=== PATIENT | female | born 1980 | race Caucasian/White ===

== ENCOUNTER 2016-10-24 18:08 | Observation (INO) | payer MEDICAID ==
[2016-10-24] MEDS ORDERED: Sodium Chloride 0.9% 1,000 ML IV ONE (18:37)
[2016-10-24] MEDS ORDERED: Ondansetron 4 MG/2 ML SDV IV ONE (18:37)
[2016-10-24 19:14] LABS: CHLORIDE,CL 106 mmol/L (101-111); SODIUM,NA 137 mmol/L (135-145)
[2016-10-24] MEDS ORDERED: Iopamidol 755 Mg/ML 100 ML Bottle IVPUSH ONE (20:00)
[2016-10-24] MEDS ORDERED: Famotidine 20 MG/2 ML SDV IV PRN (21:29)
[2016-10-24] MEDS ORDERED: Acetaminophen 325 MG Tab PO PRN (21:29)
[2016-10-24] MEDS ORDERED: Metoclopramide 10 MG/2 ML SDV IV PRN (21:29)
[2016-10-24] MEDS ORDERED: Docusate Sodium 100 MG Cap PO PRN (21:29)
[2016-10-24] MEDS: Acetaminophen/oxyCODONE 325-5 MG Tab PO PRN (21:45)
[2016-10-24] MEDS: Lactated Ringers 1,000 ML IV SCH (21:49)
[2016-10-25] MEDS: Acetaminophen/oxyCODONE 325-5 MG Tab PO PRN ×2 (02:26→09:31)
[2016-10-25] MEDS: Lactated Ringers 1,000 ML IV SCH (06:07)
[2016-10-25 06:57] LABS: CHLORIDE,CL 107 mmol/L (101-111); SODIUM,NA 138 mmol/L (135-145)
[2016-10-25 08:35] VITALS: BP 103/62
--- NOTE | 2016-10-25 09:25 | PN ---
DATE: 10/24/2016 SUBJECTIVE: The patient has been still having her upper abdominal pain and some nausea associated with it, worse with palpation now and taking a deep breath. Investigations including chest x-ray and EKG were not concerning. CT to rule out PE was done with no evidence of cardiopulmonary disease; small hiatal hernia was noted, otherwise. ASSESSMENT: 1. Intrauterine 27 and 2/7 weeks, confirmed with 19 and 2/7 week ultrasound with left upper quadrant pain radiating into the back. 2. History of two previous C-sections. 3. Impaired glucose tolerance. 4. Advanced maternal age in a G6, P3-0-2-3. PLAN: As the patient's pain continues, we will admit her and follow clinically and closely. I have ordered some Percocet for her for pain, IV fluids, and other medications as needed. Please see orders for further details. She will be admitted for observation at this time. As ultrasound is not available, we will order ultrasound in the morning for looking at baby placenta as well as complete upper abdominal ultrasound series including kidneys, liver, spleen, gallbladder, and pancreas. Please see orders for the details. For her H and P, please see other notes for further details. [facility] /[id number]
--- NOTE | 2016-10-25 09:52 | OBOUT ---
DATE: 10/24/2016 DATE AND TIME OF NST: 10/24/2016 at 1820 hours to 1840 hours. REASON FOR NST: 1. Intrauterine at 29-2/7 weeks confirmed with 19-2/7 weeks' ultrasound. 2. Left upper quadrant pain and back pain. 3. History of 2 previous C-sections. 4. Impaired glucose tolerance. 5. Advanced maternal age. 6. G6, P3-0-2-3. NST INTERPRETATION: During this time period, heart tone baseline is approximately 155 and there are at least two 15 x 15 beats per minute accelerations, making the strip reactive. It is also noted to be reassuring. Tocometer reveals no evidence of contractions, none felt by the patient. ASSESSMENT: 1. Nonstress test - reactive and reassuring. 2. Tocometer without contractions. PLAN: Please see other OB note for further details. [facility] /[id number]
--- NOTE | 2016-10-25 10:01 | OBOUT ---
DATE: 10/24/2016 SUBJECTIVE: The patient is still having pain, was requesting something for pain. Was going to hold off after further discussion. OBJECTIVE: Vital Signs: Her heart rate is in the 108 to 109 range, O2 sats have been 98% to 99% on room air. Appearance: Lying in the gurney, sitting upright. IMAGING DATA: Chest x-ray, portable, was done and reviewed by my eyes does show interference of reading due to pendulous breasts, but no obvious acute abnormalities are noted by my evaluation. No obvious cardiomegaly. No obvious pleural effusion that I can see. EKG revealed sinus tachycardia with a rate of 11, intervals is intact, axis between 0 and 60. No obvious evidence of hypertrophy, ST changes, or significant Q-waves. ASSESSMENT AND PLAN: 1. Intrauterine at 29 and 2/7 weeks, confirmed 19 and 2/7-week ultrasound with left upper quadrant pain that radiates into the back and chest region. 2. Pleurisy. PLAN: Based on these symptoms, I did discuss the case with Dr. Adrian Sal, HEALTH PROFESSOR, in [place] and shared decision was made to proceed with CT scan of the lungs to rule out a pulmonary embolus. I did discuss this with the patient as well as risks associated with radiation that she can receive up to 5 rads safely usually during and CT scan of the abdomen and pelvis usually gives 2.2 rads, therefore, we will proceed with CT scan of the chest to rule out PE and follow clinically and closely. She is to notify us if symptoms worsen, change in any way, and did discuss with patient following closely. I did also discuss with her that baby appears reassuring on the strip. No evidence of contractions. There is no uterine pain. Therefore, I feel overall safe in terms of baby being safe in regard to current symptomatology and that is most likely not related something in utero or to the uterus or baby. The patient understands and agrees with this treatment plan. We will await evaluations as noted above. [facility] /[id number]
--- NOTE | 2016-10-25 10:07 | OBOUT ---
DATE: 10/25/2016 DATE AND TIME OF NST: 10/25/2016 at 0705 hours to 0725 hours. REASON FOR NST: 1. Intrauterine at 29-2/7 weeks confirmed with 19-2/7 weeks' ultrasound. 2. Upper abdominal pain/back pain. 3. History of 2 previous C-sections. 4. Impaired glucose tolerance. 5. Advanced maternal age. 6. 6, para 3-0-2-3. NST INTERPRETATION: During this time period, heart tone baseline is approximately 125 and there are at least two 15 x 15 beats per minute accelerations, making the strip reactive. It is also noted to be reassuring. Tocometer reveals no evidence of contractions. ASSESSMENT: 1. Nonstress test - reactive and reassuring. 2. Tocometer without contractions. PLAN: We will continue to follow clinically and closely. Please see other dictations for further details. The patient understands and agrees with the above treatment plan. [facility] /[id number]
--- NOTE | 2016-10-25 10:37 | PN ---
DATE: 10/25/2016 SUBJECTIVE: The patient slept through the night. Her pain has improved and is now described as just more of an ache on the upper abdominal area from epigastric area to right and left upper quadrant regions. Pleurisy has essentially dissipated. She is able to take a deep breath without any symptoms at this point in time. Nurses note no concerns. She did tolerate a sandwich last night. OBJECTIVE: Vital Signs: Temperature 98.1, heart rate 94, blood pressure 109/61, and respiratory rate 16. Appearance: Female who appears her stated age, lying in bed. HEENT: Head is atraumatic. EOMs intact. Mucous membranes moist. Neck: No obvious masses or lesions. Lungs: Clear to auscultation bilaterally. No increased work of breathing. No pleurisy noted. Heart: S1 and S2, regular rate and rhythm. Abdomen: Minimal tenderness with deep palpation in the upper quadrants bilaterally. No rebound, rigidity, or guarding. The pain has improved from previous evaluations. Gravid belly noted, otherwise with monitors applied. Extremities: No peripheral edema. No calf pain. INVESTIGATIONS: NST is found to be reactive and reassuring. Tocometer reveals no evidence of contractions. CMP, amylase, and troponin I are remarkable for BUN low at 6, creatinine low at 0.4, calcium low at 8, 5.9 protein, and 2.8 albumin. Urinalysis repeated this morning revealed 15 ketones, 2 urobilinogen, many mucus with no proteinuria. Troponin I was less than 0.02. Pending is her ultrasounds of her upper abdominal region. ASSESSMENT: 1. Intrauterine at 29-2/7 weeks confirmed with 19-2/7 weeks' ultrasound, admitted with left upper quadrant pain and pleurisy, now the pain seems to be more diffuse in the upper abdominal area. 2. Small hiatal hernia. 3. History of 2 previous sections. 4. Impaired glucose tolerance. 5. Advanced maternal age. 6. 6, para 3-0-2-3. PLAN: We will do the ultrasounds. If there are no concerns, most likely we will send the patient home as her pain has improved and follow clinically and closely with a followup next week. If there are concerns with ultrasounds, will need further evaluation and management potentially, and this was discussed with the patient. She understands and agrees with the treatment plan. [facility] /[id number]
--- NOTE | 2016-10-28 09:00 | HP ---
PATIENT IDENTIFICATION: Bianca Montelongo is a 36-year-old, G6, P3-0-2-3, intrauterine , 29 and 2/7 weeks, confirmed with 19 and 2/7 week ultrasound that presents with left upper quadrant pain and back pain. HISTORY OF PRESENT ILLNESS: The patient states pain woke her from sleep at 3:00 a.m., has been consistent ever since then, located in the left upper quadrant region, worse with deep palpation. Seems to radiate into the back and back portion of her shoulders. She rates the pain as 5-6/10, is made worse with taking a deep breath or walking around and she is afraid to take a deep breath because the pain is worse when she does this. She denies any spotting, bleeding, or leaking. She denies any contractions. To put this in context, she has a posterior placenta per her ultrasound report. Records were called for and reviewed as below and supplemented by the patient's history. OB HISTORY: 1. 11/06/2015, delivery at 38 and 3/7 weeks, repeat low transverse , weighing 3572 g. 2. 10/02/2000, 39 and 4/7 weeks, delivered male, primary low transverse C- section with vacuum-assisted delivery with history of breech and then vertex with failed induction, yielding a male weighing 3884 g. 3. 2009, 6 weeks, had spontaneous AB. 4. 2005, 41 weeks, delivered a spontaneous vaginal delivery of female weighing 3799 g. 5. 1996, 9 weeks, had D and C. ANTEPARTUM LABS: ABO blood type O positive, negative antibody. Rubella immune. Syphilis antibodies were nonreactive. Negative hepatitis B surface antigen, hep C, HIV, GC, chlamydia. Wet prep within normal limits. One-hour GTT was elevated at 153, 3-hour GTT was negative for gestational diabetes. ALLERGIES: None. MEDICATIONS: vitamins. PAST MEDICAL/PAST SURGICAL HISTORY: Remarkable for laparoscopic surgery for an ovarian cyst rupture and her 2 previous C-sections. She also had a breast reduction in 2013. Also, has past medical history of thyroid disease. Was told she had a leaky heart valve, saw Cardiology, and no concerns noted per patient. She has a history of depression and hypoactive sexual desire. 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 Boyfriend, Markie Arrington, father of baby, is involved. She has a cat in the household. FAMILY HISTORY: Brother was born deaf. Maternal grandmother with pancreatic and breast cancer with paternal grandmother with lung and breast cancer. Diabetes in mother, maternal aunt, maternal uncle and maternal grandfather. Heart disease in father, maternal grandfather, paternal grandfather. High blood pressure in father. No mental retardation or cystic fibrosis. No history of defects or Down syndrome. Ovarian cancer in mother. Thyroid disease in paternal grandmother. Negative family history of anesthesia problems or bleeding problems. REVIEW OF SYSTEMS: The patient denies any fever, chills, sweats, runny nose, cough, nasal congestion, or shortness of breath other than when she is afraid to take a deep breath. She denies any problems with bowel or bladder habit problems. She does note some minimal nausea associated with the above symptoms. No vomiting. No blood in the stool or dark tarry stools. No problems with urinating. No swelling or calf pain. No frontal chest pain. Otherwise, review of systems fully reviewed and felt to be noncontributory. OBJECTIVE: Vital Signs: Blood pressure 115/56, heart rate 114, temperature 99.4. Appearance: Female appears her stated age, acting appropriate for age, nontoxic in appearance. Afraid to take a deep breath with exam due to pain and discomfort. HEENT: Head is atraumatic. EOMs intact. PERRLA. No scleral icterus. No obvious otorrhea or rhinorrhea. Mucous members moist. Neck: No obvious tenderness. Lungs: Clear to auscultation bilaterally. No increased work of breathing. Pain with deep breath noted and radiating into left back, starting in the left upper quadrant region by the patient's report. Heart: S1-S2, regular rate and rhythm. Abdomen: Gravid. Jeffery's indeterminate. Tender in the left upper quadrant, which reproduces the pain that she has been experiencing with deep palpation. No other organomegaly, pulsatile masses, or obvious hernias. No rebound, rigidity, or guarding. : Deferred. Wet prep obtained per nurse. Extremities: No peripheral edema. Deep tendon reflexes 2/4 bilaterally and symmetric in the lower extremities. Psychiatric: Mood and affect are congruent. Judgment and insight are intact. Skin: Without cyanosis, clubbing, or jaundice. heart tones in the 150s range, felt to be reactive and reassuring, tocometer reveals no evidence of contractions. LABORATORY DATA: White cell count 8.5, hemoglobin 10.7, platelets 194. CMP remarkable for minimally low potassium of 3.4, creatinine 0.4, total protein 6.5. Urinalysis; 30 protein, small bilirubin, 0 to 5 red cells and white cells per high-power field, many epithelial, bacteria, and mucous cells with some clue cells seen. Wet prep remarkable for yeast noted and no clue cells seen. Chest x-ray has been ordered. ASSESSMENT: 1. Intrauterine , 29 and 2/7 weeks, confirmed with 19 and 2/7 week ultrasound. 2. Left upper quadrant and back pain. 3. History of 2 previous C-sections. 4. Impaired glucose tolerance. 5. Advanced maternal age. 6. G6, P3-0-2-3. PLAN: Discussed with the patient. We will proceed with a chest x-ray and then may need further evaluation, management, consultation with higher level care for recommendations. Did discuss this with the patient in detail. She understands and agrees. We will await the chest x-ray and follow thereafter. [facility] /[id number]
--- NOTE | 2016-10-30 15:13 | EKG ---
10/24/2016- EMILY JESUS - EKG per my reading shows sinus rhythm at the rate of 130s. [facility] /[id number]
--- NOTE | 2016-10-31 09:39 | DISCH ---
ADMIT DIAGNOSES: 1. Intrauterine at 29 and 2/7 weeks, confirmed on 19 and 2/7 weeks' ultrasound. 2. Left upper quadrant pain. 3. Pleurisy. 4. History of 2 previous sections. 5. Impaired glucose tolerance. 6. Advanced maternal age. 7. 6, para 3-0-2-3. DISCHARGE DIAGNOSES: 1. Intrauterine at 29 and 2/7 weeks, confirmed on 19 and 2/7 weeks' ultrasound. 2. Left upper quadrant pain - resolving. 3. Pleurisy - resolving. 4. History of 2 previous sections. 5. Impaired glucose tolerance. 6. Advanced maternal age. 7. 6, para 3-0-2-3. HISTORY OF PRESENT ILLNESS: Please see H and P. SUMMARY OF HOSPITAL COURSE: The patient was admitted on the above date with the above diagnoses and followed closely. Had labs done. Please see previous workup. Troponin was essentially within normal limits as well as CMP, amylase, and troponin I. Her abdominal pain resolved overnight. She was followed closely. Given IV fluids and monitored. CONDITION ON DISCHARGE COMPARED TO CONDITION ON ADMISSION: Improved. DISCHARGE INSTRUCTIONS: Diet as tolerated. Activity as tolerated. FOLLOWUP: Next week and discuss with her in the interim reasons to return or go to the emergency room. She understands and agrees with the above treatment plan. Of note, it was not felt the patient has risk of labor or delivery or having any evidence of distress or concerns. [facility] /[id number]
== END 2016-10-25 11:02 | disposition home or self-care (01) ==
LOC: DL.OBCHECK 18:08 → DL.OB 21:34
PROVIDERS: ADMIT Family Medicine; ATTEND Family Medicine
DX: O99.89 Other specified diseases and conditions complicating pregnancy, childbirth and the puerperium (principal); R10.12 Left upper quadrant pain; M54.9 Dorsalgia, unspecified; O99.810 Abnormal glucose complicating pregnancy; O09.523 Supervision of elderly multigravida, third trimester; Z3A.01 Less than 8 weeks gestation of pregnancy
CPT/HCPCS: 36415; 59025; 71010; 71260; 76700; 76815; 80053; 81001; 82150; 84484; 85025; 85027; 87086; 87210; 93005; A9270; J2405; J7030; J7120; Q9967; 96361; 96374; 96375; G0378; S0028

== ENCOUNTER 2016-12-31 05:58 | Inpatient (IN) | payer MEDICAID ==
[2016-12-31] MEDS ORDERED: Ondansetron 4 MG/2 ML SDV IV PRN (06:00)
[2016-12-31] MEDS ORDERED: Misoprostol 400 MCG (4 X 100 MCG TAB) RECTAL PRN (06:00)
[2016-12-31] MEDS ORDERED: Naloxone 2 MG/2 ML Syringe IVPUSH PRN (06:00)
[2016-12-31] MEDS ORDERED: Methylergonovine 0.2 MG/1 ML Amp IM PRN (06:00)
[2016-12-31] MEDS ORDERED: Oxytocin/Normal Saline 30 UNIT/500 ML BAG IV SCH (06:00)
[2016-12-31] MEDS ORDERED: diphenhydrAMINE 50 MG/ML SDV IVPUSH PRN (06:00)
[2016-12-31] MEDS ORDERED: ePHEDrine 50 MG/ML SDV IVPUSH PRN (06:00)
[2016-12-31] MEDS ORDERED: Acetaminophen 325 MG Tab PO PRN (06:00)
[2016-12-31] MEDS ORDERED: Acetaminophen/oxyCODONE 325-5 MG Tab PO PRN (06:00)
[2016-12-31] MEDS ORDERED: Carboprost Tromethamine 250 MCG/1 ML Amp IM ONE (06:00)
[2016-12-31] MEDS: Lactated Ringers 1,000 ML IV SCH ×5 (06:13→21:42)
[2016-12-31] MEDS ORDERED: Citric Acid/Sodium Citrate Solution 30 ML Cup PO ONE (08:10)
[2016-12-31] MEDS ORDERED: ceFAZolin 2 GM in Premix Bag 1 BAG IV ONE (08:10)
[2016-12-31] MEDS ORDERED: Oxytocin/Normal Saline 60 UNIT/1,000 ML BAG ONE (08:58)
[2016-12-31] MEDS ORDERED: Ketorolac 30 MG/ML SDV IVPUSH SCH (14:00)
--- NOTE | 2016-12-31 14:26 | OR ---
DATE: 12/31/2016 PREOPERATIVE DIAGNOSES: 1. Intrauterine at 39 weeks, confirmed with 19 and 2/7 ultrasound. 2. Previous , request repeat low transverse . 3. Group B Streptococcus negative. 4. Impaired glucose tolerance. 5. History of breech presentation in third trimester. 6. Advanced maternal age. 7. Close interval . 8. 6, para 3-0-2-3. POSTOPERATIVE DIAGNOSES: 1. Intrauterine at 39 weeks, confirmed with 19 and 2/7 ultrasound, delivered. 2. Previous , request repeat low transverse . 3. Group B Streptococcus negative. 4. Impaired glucose tolerance. 5. History of breech presentation in third trimester. 6. Advanced maternal age. 7. Close interval . 8. 6, para 3-0-2-3. 9. Nuchal cord x1 reduced bluntly with delivery. PROCEDURE PERFORMED: Repeat low transverse . ANALYSIS INTERN: Aleyda Moody MD ANESTHESIA: Spinal. ESTIMATED BLOOD LOSS: 600 mL. IV FLUIDS: 1000 mL of lactated Ringer's, 300 mL of Pitocin. URINE OUTPUT: 200 mL and clear yellow. START: 0953 hours. UTERINE INCISION: 0958 hours. DELIVERY TIME: 0959 hours. STOP TIME: 1022 hours. FINDINGS: Male, scores 9 and 10, weight pending. DESCRIPTION OF PROCEDURE IN DETAIL: After proper consent was obtained, the patient was brought to the operating room where spinal anesthetic was administered. A Roberts was placed under preop under sterile conditions. Abdomen was prepped and draped in normal sterile fashion with the patient placed in supine position with left lateral tilt. A skin incision was made over lower abdomen in transverse Pfannenstiel-type fashion over previous scar. This was carried down in the midline, and fascia was scored in the midline. Subcutaneous tissue was raked laterally with Nagel retractor and fascial incision was extended in transverse fashion using curved Saavedra's. Martin clamps x2 were used to grasp the superior aspect of fascia and rectus muscles were dissected from fascia using sharp and blunt technique. In a similar fashion, Martin clamps x2 were used to grasp the inferior portion of incision and rectus pyramidalis muscles were dissected from fascia using sharp and blunt technique. Rectus muscles were in the midline with blunt technique. Abdominal cavity was entered in blunt technique. Incision was extended superiorly and inferiorly with blunt technique. Carl O large retractor was then introduced and used. Lower uterine segment was identified and curvilinear incision made on lower uterine segment at 0958 hours. Uterus was entered sharply. Clear fluid returned. The uterine incision was extended in transverse fashion using blunt technique. vertex was then delivered through the incision followed by rest of the infant with nuchal cord x1 reduced bluntly with delivery. Mouth and nares were suctioned. Cord was doubly clamped and cut and was brought over to team. Then, approximately 10 mL of cord blood was obtained for labs. Placenta then delivered with gentle cord traction and fundal massage. Uterine cavity was cleared of all blood clots and debris with lap sponge. Wallace clamps were used to grasp the uterine incision, and this was closed in a running locked fashion and tied at lateral margins with 1-0 Vicryl. Right side of the incision revealed bleeding and required multiple rnlhjr-[id number]-llyen stitches and a running locked stitch and hemostasis reassured. First inspection of the uterine incision revealed hemostasis. Carl O retractor was then removed and paracolic gutters were cleared of all blood clots and debris with lap sponge. Anterior cul-de-sac was then irrigated copiously and all blood clots and debris removed. Second and final inspection of the uterine incision and anterior cul-de-sac revealed hemostasis. Rectus muscles were then reapproximated in midline with [id number] stitch using 1-0 Vicryl. Subfascial tissue was found to be hemostatic, and fascia was closed in a running fashion, tied at lateral margin with 0 looped PDS. Subcutaneous tissue was irrigated copiously, hemostasis reassured. Skin was reapproximated with medium tila. Sterile Aquacel dressing applied. Uterine fundus was firm and massaged at the conclusion of the case -2 below umbilicus. No immediate complications were noted. Sponge, lap, and needle counts were correct. The patient received 2 g of Ancef preoperatively, Pitocin per protocol, and will receive Toradol at the conclusion of the case for pain control. Mother and are currently stable at the time of my dictation. [facility] /[id number]
[2016-12-31] MEDS: Ketorolac 30 MG/ML SDV IVPUSH SCH ×2 (16:12→22:07)
[2016-12-31] MEDS: Docusate Sodium 100 MG Cap PO PRN (23:44)
[2017-01-01] MEDS: Ketorolac 30 MG/ML SDV IVPUSH SCH (03:54)
[2017-01-01] MEDS: Lactated Ringers 1,000 ML IV SCH (05:33)
[2017-01-01] MEDS: Acetaminophen/oxyCODONE 325-5 MG Tab PO PRN ×2 (08:17→20:20)
[2017-01-01] MEDS: Simethicone 80 MG Tab.Chew PO PRN ×2 (08:17→20:20)
[2017-01-01] MEDS: Prenatal Multivitamin with Calcium/Folic Acid/Iron Tab PO SCH (08:17)
[2017-01-01] MEDS: Docusate Sodium 100 MG Cap PO PRN ×2 (08:18→20:21)
[2017-01-01] MEDS: Ferrous Sulfate 325 MG Tab PO SCH (08:18)
--- NOTE | 2017-01-01 09:37 | PN ---
DATE: 01/01/2017 Postoperative day #1. SUBJECTIVE: The patient is ambulating, tolerating POs. Roberts is in place. Pain is under control. Bleeding has decreased. OBJECTIVE: Vital Signs: Last set of vitals are updated and listed in the chart. Temperature 98.8, heart rate 76, blood pressure 102/61, and respiratory rate is 20. Lungs: Clear to auscultation bilaterally. Heart: S1 and S2. Regular rate and rhythm. Pelvic: Firm uterus +1 above the umbilicus. Aquacel dressing appears dry and intact. LABORATORY DATA: White cell count 12; hemoglobin 8.8, dropped from 10.3; and platelets 182. ASSESSMENT AND PLAN: 1. Postoperative day #1, status post repeat low transverse section. 2. Anemia of acute blood loss. Hemoglobin dropping down to 8.8. The patient is asymptomatic. Vital signs are stable. I's and O's have been adequate. We will follow closely and most likely consider a CBC in a couple of days unless she starts becoming symptomatic or having other issues and then may do it sooner. The patient understands and agrees with the above treatment plan. [facility] /[id number]
--- NOTE | 2017-01-01 09:43 | OBOUT ---
DATE: 12/31/2016 DATE AND TIME OF NST: Date: 12/31/2016. Time: 6:40 to 7:00. REASON FOR NST: 1. Intrauterine at 39 weeks. 2. Previous history of , request repeat low transverse . 3. Advanced maternal age. 4. Impaired glucose tolerance. NST INTERPRETATION: During this time period, heart tone baseline is approximately 135 and there are at least two 15 x 15 beat per minute accelerations, making this strip reactive. It is also noted to be reassuring. Tocometer reveals no evidence of contractions. Initial vital signs; blood pressure was 111/63, heart rate 133, temperature 98.5, and then heart rate dropped down to 96. ASSESSMENT AND PLAN: 1. Nonstress test, reactive and reassuring. 2. Tocometer without contractions. PLAN: Please see H and P for further details which is updated and includes this NST, which is as above, her vital signs. In addition, I did discuss with her as an emergency has come in that her time will be delayed. She understands and agrees with the above treatment and plan, and we will follow closely and clinically. [facility] /[id number]
[2017-01-01] MEDS: Ibuprofen 800 MG Tab PO PRN ×2 (12:19→20:20)
[2017-01-01] MEDS ORDERED: Ketorolac 30 MG/ML SDV IVPUSH ONE (14:11)
[2017-01-01] MEDS ORDERED: Morphine PF 1 MG/ML Amp IVPUSH ONE (14:11)
[2017-01-01] MEDS ORDERED: Lactated Ringers 1,000 ML IV ONE (14:11)
[2017-01-01] MEDS ORDERED: ePHEDrine 50 MG/ML SDV IV ONE (14:11)
[2017-01-01] MEDS ORDERED: Ondansetron 4 MG/2 ML SDV IV ONE (14:11)
[2017-01-01] MEDS ORDERED: Dexamethasone 4 MG/ML SDV IV ONE (14:11)
[2017-01-01] MEDS ORDERED: Oxytocin/Normal Saline 30 UNIT/500 ML BAG IV ONE (15:17)
[2017-01-02] MEDS: Acetaminophen/oxyCODONE 325-5 MG Tab PO PRN ×4 (06:49→21:16)
[2017-01-02] MEDS: Ibuprofen 800 MG Tab PO PRN ×2 (06:49→17:12)
[2017-01-02] MEDS: Simethicone 80 MG Tab.Chew PO PRN ×3 (06:49→21:17)
[2017-01-02] MEDS: Docusate Sodium 100 MG Cap PO PRN ×2 (08:03→21:16)
[2017-01-02] MEDS: Ferrous Sulfate 325 MG Tab PO SCH (08:03)
[2017-01-02] MEDS: Prenatal Multivitamin with Calcium/Folic Acid/Iron Tab PO SCH (08:03)
--- NOTE | 2017-01-02 11:15 | PN ---
DATE: 01/02/2017 Postop day #2. SUBJECTIVE: The patient is tolerating POs, ambulating, urinating, passing flatus, and doing well. Bleeding has decreased. OBJECTIVE: Vital Signs: Last set of vitals were updated and listed in the chart: Temperature 97.8, heart rate 88, blood pressure 116/66, respiratory rate 16. Lungs: Clear to auscultation bilaterally. Heart: S1 and S2. Regular rate and rhythm. Pelvic: Firm uterus at the umbilicus. Aquacel dressing dry and intact. ASSESSMENT: Postop day #2, status post repeat low transverse . PLAN: We will continue to follow clinically and closely. Her hemoglobin yesterday was 8.8, so we will repeat CBC tomorrow. Possible discharge tomorrow. The patient understands and agrees with the above treatment plan. [facility] /[id number]
[2017-01-03] MEDS: Acetaminophen/oxyCODONE 325-5 MG Tab PO PRN ×2 (01:17→08:45)
[2017-01-03] MEDS: Ibuprofen 800 MG Tab PO PRN ×2 (01:18→10:27)
[2017-01-03] MEDS: Simethicone 80 MG Tab.Chew PO PRN (08:41)
[2017-01-03] MEDS: Ferrous Sulfate 325 MG Tab PO SCH (08:42)
[2017-01-03] MEDS: Prenatal Multivitamin with Calcium/Folic Acid/Iron Tab PO SCH (08:42)
[2017-01-03] MEDS: Docusate Sodium 100 MG Cap PO PRN (08:43)
--- NOTE | 2017-01-03 11:08 | DISCH ---
ADMITTING DIAGNOSES: 1. Intrauterine at 39 weeks, confirmed by a 19 and 2/7-week ultrasound. 2. Previous , request for repeat low transverse . 3. Group B Streptococcus negative. 4. Impaired glucose tolerance. 5. Breech earlier in the but vertex with delivery. 6. Advanced maternal age. 7. Close interval . 8. G6, P3-0-2-3. 9. Anemia of with hemoglobin 10.3 upon admission. DISCHARGE DIAGNOSES: 1. Intrauterine at 39 weeks, confirmed by a 19 and 2/7-week ultrasound-delivered. 2. Previous , request for repeat low transverse . 3. Group B Streptococcus negative. 4. Impaired glucose tolerance. 5. Breech earlier in the but vertex with delivery. 6. Advanced maternal age. 7. Close interval . 8. G6, P3-0-2-3. 9. Anemia of with hemoglobin 10.3 upon admission. 10.Nuchal cord x1 reduced bluntly at delivery. 11.Anemia acute blood loss. Hemoglobin dropping down to 8.8 with discharge hemoglobin being 10.7. PROCEDURE PERFORMED: Repeat low transverse section. HISTORY OF PRESENT ILLNESS: Please see H and P. SUMMARY OF HOSPITAL COURSE: The patient was admitted on the above date with the above diagnoses, underwent the above procedures, then went on to have a repeat low transverse yielding a male with scores 9 and 10, weighing 3450 g (7 pounds 10 ounces) with an EBL of 600 mL done under a spinal anesthesia. Postoperative day #1 and #2, please see progress note. Postoperative day #3, date of discharge, the patient was tolerating p.o., was ambulating, urinating, passing flatus, and requesting discharge. PHYSICAL EXAMINATION: Vital Signs: Last set was updated and listed in the chart. Temperature 97.9, heart rate 79, blood pressure 122/76, and respiratory rate 18. Lungs: Clear to auscultation bilaterally. Heart: S1 and S2. Regular rate and rhythm. Pelvic: Firm uterus, -1 below umbilicus. Aquacel dressing showed some minimal shadowing that is trace, nothing increasing in size. Extremities: Trace pedal edema. No calf pain. LABORATORY DATA: Discharge labs reveal white cell count 9.1, hemoglobin 10.7, and platelets 205. CONDITION ON DISCHARGE COMPARED TO CONDITION ON ADMISSION: Improved. DISCHARGE INSTRUCTIONS: 1. Diet: As tolerated. 2. Activity: No lifting more than 20 pounds. No sit-ups, straining, and pelvic rest for the next 6 weeks with immediate return to fertility discussed with the patient. 3. Reasons to return or go to the emergency room were discussed with the patient in detail including, but not limited to, temperature greater than 100.4; foul-smelling discharge; red or hot breasts; increased vaginal bleeding; or increasing pain, drainage, or redness around the incision. DISCHARGE MEDICATIONS: 1. Tnoy-gog-joqlmaw ibuprofen for pain. 2. vitamins while . 3. Percocet 5/325 one to two q.6 hours p.r.n., #30. No refills. Discussed the use of this medication, adverse and wanted effects, as well as precautions while driving. FOLLOWUP: Follow up on 01/06/2017. Did discuss the importance of followup and ramifications of not doing so as well as reason to return to emergency in regard to her infant. [facility] /[id number]
[2017-01-03 11:24] VITALS: BP 128/71
== END 2017-01-03 10:30 | disposition home or self-care (01) | DRG 765 ==
LOC: DL.OB 05:58 → OBSVTOIN 09:59
PROVIDERS: ADMIT Family Medicine; ATTEND Family Medicine
PROC: 10D00Z1 Extraction of Products of Conception, Low, Open Approach (ICD-10-PCS; principal; 2016-12-31)
DX: O34.211 Maternal care for low transverse scar from previous cesarean delivery (principal); D62 Acute posthemorrhagic anemia; O99.02 Anemia complicating childbirth; Z3A.39 39 weeks gestation of pregnancy; Z37.0 Single live birth
CPT/HCPCS: 01961; 36415; 85027; 86850; 86900; 86901; 94010; A9270-GY; J0690; J1100; J1885; J2274; J2405; J2590; J7120

== ENCOUNTER 2017-06-08 09:20 | Emergency (ER) | payer MEDICAID ==
--- NOTE | 2017-06-08 09:37 | EDM.PDOC ---
ED HPI GENERAL MEDICAL PROBLEM - General Chief Complaint: Genitourinary Problem Stated Complaint: PELVIC/LOW BACK PAIN Time Seen by Provider: 06/08/17 09:36 Source of Information: Reports: Patient, Old Records, RN, RN Notes Reviewed History Limitations: Reports: No Limitations - History of Present Illness INITIAL COMMENTS - FREE TEXT/NARRATIVE: C/O 3 days of dysuria w/suprapubic pain. Pt thinks she might be getting a UTI. Denies fever or chills. Has been dealing with low back pain x1 month, but denies flank pain. She had a Mirena IUD placed after delivering a baby 5 months and has had pelvic discomfort since then. She has an appointment later this week for an IUD check. Onset: Gradual Onset Date: 06/06/17 Duration: Constant, Getting Worse Location: Reports: Pelvis Quality: Reports: Ache, Burning Severity: Moderate Improves with: Reports: None Worsens with: Reports: Other (urination) Associated Symptoms: Reports: No Other Symptoms Pelvic Pain Score (Numeric/FACES): 5 - Related Data Allergies Allergy/AdvReac Type Severity Reaction Status Date / Time No Known Allergies Allergy Verified 06/08/17 09:39 Home Meds: Home Meds Fish Oil/DHA/EPA [Fish Oil 1,200 MG] 1 tab PO TID 06/08/17 [History] Multivitamin [Multi-Vitamin Daily] 1 tab PO DAILY 06/08/17 [History] Past Medical History - Past Health History Medical/Surgical History: Denies Medical/Surgical History HEENT History: Reports: None Cardiovascular History: Reports: Other (See Below) Other Cardiovascular History: reports history of "leaky Valve" was seen by hotel engineer in past Respiratory History: Reports: None Gastrointestinal History: Reports: None Genitourinary History: Reports: None 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: Musculoskeletal History: Reports: None Neurological History: Reports: None Psychiatric History: Reports: None Endocrine/Metabolic History: Reports: None Hematologic History: Reports: Anemia Immunologic History: Reports: None Oncologic (Cancer) History: Reports: None Dermatologic History: Reports: None - Infectious Disease History Infectious Disease History: Reports: None - Past Surgical History Head Surgeries/Procedures: Reports: None Female Surgical History: Reports: Section Social & Family History - Family History Family Medical History: Noncontributory Hematologic: Reports: Anemia - Tobacco Use Smoking Status *Q: Former Smoker Years of Tobacco use: 10 Used Tobacco, but Quit: Yes Month/Year Tobacco Last Used: 06 Second Hand Smoke Exposure: No - Caffeine Use Caffeine Use: Reports: Coffee - Alcohol Use Days Per Week of Alcohol Use: 0 - Recreational Drug Use Recreational Drug Use: No - Living Situation & Occupation Living situation: Reports: with Family Occupation: Employed ED ROS GENERAL - Review of Systems Review Of Systems: ROS reveals no pertinent complaints other than HPI. ED EXAM, RENAL/ - Physical Exam Exam: See Below Exam Limited By: No Limitations General Appearance: Alert, WD/WN, No Apparent Distress, Obese Throat/Mouth: Normal Voice, No Airway Compromise Head: Atraumatic, Normocephalic Neck: Normal Inspection Respiratory/Chest: No Respiratory Distress, Lungs Clear, Normal Breath Sounds, No Accessory Muscle Use, Chest Non-Tender Cardiovascular: Regular Rate, Rhythm GI/Abdominal: Normal Bowel Sounds, Soft, No Distention, Pelvis Stable, Tender ( focal suprapubic tenderness, no peritoneal signs). No: Guarding, Rigid, Rebound (Female) Exam: Deferred Rectal (Female) Exam: Deferred Back Exam: No: CVA Tenderness (L), CVA Tenderness (R) Extremities: Normal Inspection Neurological: Alert, Oriented, CN II-XII Intact, Normal Cognition, Normal Gait, No Motor/Sensory Deficits Psychiatric: Normal Affect, Normal Mood Skin Exam: Warm, Dry, Intact, Normal Color, No Rash Course - Vital Signs Last Recorded V/S: Last Vital Signs Temp 36.3 C 06/08/17 09:28 Pulse 87 06/08/17 09:28 Resp 16 06/08/17 09:28 BP 131/85 06/08/17 09:47 Pulse Ox 99 06/08/17 09:28 - Orders/Labs/Meds Orders: Active Orders 24 hr Category Date Time Status CULTURE URINE [RM] Stat Lab 06/08/17 10:09 Ordered Ciprofloxacin [Ciprofloxacin HCl] Med 06/08/17 10:17 Once 500 mg PO ONETIME ONE Phenazopyridine [Urinary Pain Relief] Med 06/08/17 10:16 Once 190 mg PO ONETIME ONE Labs: Laboratory Tests 06/08/17 06/08/17 Range/Units 09:40 09:40 Urine Color Yellow (YELLOW) Urine Appearance Slightly cloudy (CLEAR) Urine pH 6.5 (5.0-9.0) Ur Specific [place] 1.020 (1.005-1.030) Urine Protein Negative (NEGATIVE) Urine Glucose (UA) Negative (NEGATIVE) Urine Ketones Negative (NEGATIVE) Urine Occult Blood Trace-intact H (NEGATIVE) Urine Nitrite Negative (NEGATIVE) Urine Bilirubin Negative (NEGATIVE) Urine Urobilinogen 0.2 (0.2-1.0) mg/dL Ur Leukocyte Esterase Small H (NEGATIVE) Urine RBC 5-10 H /HPF Urine WBC 10-20 H (0-5/HPF) /HPF Ur Epithelial Cells Few /HPF Urine Bacteria Moderate H (0-FEW/HPF) /HPF Urine Mucus Few H /LPF Urine HCG, Qual Negative Departure - Departure Time of Disposition: 10:21 Disposition: Home, Self-Care 01 Condition: Good Clinical Impression: UTI, Urinary tract infectious disease - Discharge Information Instructions: Urinary Tract Infection, Adult Forms: ED Department Discharge Additional Instructions: Rx: Cipro 500mg Rx: Pyridium 200mg Rx: Diflucan 150mg Drink plenty of water. Follow up in clinic in 7 to 10 days for recheck of urine and IUD check. - My Orders Last 24 Hours: My Active Orders 06/08/17 10:09 CULTURE URINE [RM] Stat 06/08/17 10:16 Phenazopyridine [Urinary Pain Relief] 190 mg PO ONETIME ONE 06/08/17 10:17 Ciprofloxacin [Ciprofloxacin HCl] 500 mg PO ONETIME ONE - Assessment/Plan Last 24 Hours: My Active Orders 06/08/17 10:09 CULTURE URINE [RM] Stat 06/08/17 10:16 Phenazopyridine [Urinary Pain Relief] 190 mg PO ONETIME ONE 06/08/17 10:17 Ciprofloxacin [Ciprofloxacin HCl] 500 mg PO ONETIME ONE
[2017-06-08 09:47] VITALS: BP 131/85
[2017-06-08] MEDS ORDERED: Phenazopyridine 95 MG Tab PO ONE (10:16)
[2017-06-08] MEDS ORDERED: Ciprofloxacin 500 MG Tab PO ONE (10:17)
== END 2017-06-08 10:32 | disposition home or self-care (01) ==
LOC: DL.ED 09:20
DX: N39.0 Urinary tract infection, site not specified (principal); Z87.891 Personal history of nicotine dependence; Z79.899 Other long term (current) drug therapy
CPT/HCPCS: 81001; 81025; 87086; 87088; 87186; 99284; A9270

== ENCOUNTER 2018-10-24 08:35 | Emergency (ER) | payer MEDICAID ==
[2018-10-24 08:49] VITALS: BP 122/72
[2018-10-24] MEDS ORDERED: methylPREDNISolone Sodium Succinate 125 MG/2 ML SDV IM ONE (09:03)
--- NOTE | 2018-10-24 09:09 | EDM.PDOC ---
Scribed by Aditi Carney 10/24/18 0909 for Jayjay Degroot PA ED HPI GENERAL MEDICAL PROBLEM - General Chief Complaint: Back Pain or Injury Stated Complaint: PINCHED NERVE Time Seen by Provider: 10/24/18 08:59 Source of Information: Reports: Patient, RN, RN Notes Reviewed History Limitations: Reports: No Limitations - History of Present Illness INITIAL COMMENTS - FREE TEXT/NARRATIVE: Patient presents to ER with complaint of left lower back pain that radiates down her left leg. This started on Friday. She has a history of sciatic nerve pain in the past. She took Ibuprofen and one of her husbands Gabapentin at 0300 this a.m. Onset: Gradual Duration: Getting Worse Location: Reports: Back (down to left leg) Quality: Reports: Ache Severity: Moderate Improves with: Reports: None Worsens with: Reports: None Associated Symptoms: Reports: No Other Symptoms Treatments DEBUG TECHNICIAN: Reports: NSAIDS Left Lower Back Pain Score (Numeric/FACES): 7 - Related Data Allergies Allergy/AdvReac Type Severity Reaction Status Date / Time No Known Allergies Allergy Verified 06/08/17 09:39 Home Meds: Home Meds Fish Oil/DHA/EPA [Fish Oil 1,200 MG] 1 tab PO TID 06/08/17 [History] Multivitamin [Multi-Vitamin Daily] 1 tab PO DAILY 06/08/17 [History] Past Medical History - Past Health History Medical/Surgical History: Denies Medical/Surgical History HEENT History: Reports: None Other HEENT History: wears vision Cardiovascular History: Reports: Other (See Below) Other Cardiovascular History: reports history of "leaky Valve" was seen by spinneret person in past Respiratory History: Reports: None Gastrointestinal History: Reports: None Genitourinary History: Reports: None 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: Musculoskeletal History: Reports: None Neurological History: Reports: None Psychiatric History: Reports: None Endocrine/Metabolic History: Reports: None Hematologic History: Reports: Anemia Immunologic History: Reports: None Oncologic (Cancer) History: Reports: None Dermatologic History: Reports: None - Infectious Disease History Infectious Disease History: Reports: None - Past Surgical History Head Surgeries/Procedures: Reports: None Female Surgical History: Reports: Section Social & Family History - Family History Family Medical History: Noncontributory Hematologic: Reports: Anemia - Caffeine Use Caffeine Use: Reports: Coffee - Living Situation & Occupation Living situation: Reports: with Family Occupation: Employed ED ROS GENERAL - Review of Systems Review Of Systems: ROS reveals no pertinent complaints other than HPI. ED EXAM,LOWER BACK PAIN/INJURY - Physical Exam Exam: See Below Exam Limited By: No Limitations General Appearance: Alert, WD/WN, No Apparent Distress Eye Exam: Bilateral Eye: EOMI, Normal Inspection, PERRL Ears: Normal External Exam, Normal Canal, Hearing Grossly Normal, Normal TMs Nose: Normal Inspection, Normal Mucosa, No Blood Throat/Mouth: Normal Inspection, Normal Lips, Normal Teeth, Normal Gums, Normal Oropharynx, Normal Voice, No Airway Compromise Head: Atraumatic, Normocephalic Neck: Normal Inspection, Supple, Non-Tender, Full Range of Motion Respiratory/Chest: No Respiratory Distress, Lungs Clear, Normal Breath Sounds, No Accessory Muscle Use, Chest Non-Tender Cardiovascular: Normal Peripheral Pulses, Regular Rate, Rhythm, No Edema, No Gallop, No JVD, No Murmur, No Rub GI/Abdominal: Normal Bowel Sounds, Soft, Non-Tender, No Organomegaly, No Distention, No Abnormal Bruit, No Mass (Female) Exam: Deferred Rectal (Female) Exam: Deferred Back Exam: Other (tender left lower back ) Extremities: Other (Tender on left lower back and down her left leg. ) Neurological: Alert, Normal Mood/Affect, Normal Dorsiflexion, CN II-XII Intact, Normal Plantar Flexion, Normal Gait, Normal Reflexes, No Motor/Sensory Deficits , Oriented x 3 Psychiatric: Normal Affect, Normal Mood Skin Exam: Warm, Dry, Intact, Normal Color, No Rash Lymphatic: No Adenopathy Course - Vital Signs Last Recorded V/S: Last Vital Signs Temp 36.6 C 10/24/18 08:46 Pulse 97 10/24/18 08:46 Resp 18 10/24/18 08:46 BP 122/72 10/24/18 08:46 Pulse Ox 100 10/24/18 08:46 - Orders/Labs/Meds Meds: Medications Discontinued Medications Generic Name Dose Route Start Last Admin Trade Name Freq PRN Reason Stop Dose Admin Methylprednisolone Sodium Succinate 125 mg 10/24/18 09:03 Solu-Medrol IM 10/24/18 09:04 ONETIME ONE Departure - Departure Time of Disposition: 09:08 Disposition: Home, Self-Care 01 Condition: Fair Clinical Impression: Left sciatic nerve pain Lower back pain Qualifiers: Chronicity: acute Back pain laterality: left Sciatica presence: with sciatica Sciatica laterality: sciatica of left side Qualified Code(s): M54.42 - Lumbago with sciatica, left side - Discharge Information *PRESCRIPTION DRUG MONITORING PROGRAM REVIEWED*: Not Applicable *COPY OF PRESCRIPTION DRUG MONITORING REPORT IN PATIENT LUNA: Not Applicable Instructions: Sciatica, [id number]-yt-[id number] Forms: ED Department Discharge Care Plan Goals: The patient was advised of the examination results during the visit. The patient was given an injection of Solumedrol (125 mg) while in the ED. The patient was discharged with scripts for Prednisone (20 mg) #10 to take 2 by mouth for 5 days and Flexeril (10 mg) #20 to take 1 by mouth at bedtime as needed. If the patient has any additional symptoms or concerns, the patient should either return to the emergency department or visit his primary care facility. I have read and agree with the documentation that has been completed regarding this visit. By signing this record, I attest that the documentation was completed in my physical presence and is an accurate record of the encounter.
== END 2018-10-24 09:28 | disposition home or self-care (01) ==
LOC: DL.ED 08:35
DX: M54.42 Lumbago with sciatica, left side (principal); D64.9 Anemia, unspecified
CPT/HCPCS: 96372; 99283; J2930

== ENCOUNTER 2020-12-07 05:47 | Emergency (ER) | payer MEDICAID ==
--- NOTE | 2020-12-07 06:22 | EDM.PDOC ---
<Obdulio Asif - Last Filed: 12/07/20 06:57> ED HPI GENERAL MEDICAL PROBLEM - General Chief Complaint: General Stated Complaint: COVID SYMPTOMS Time Seen by Provider: 12/07/20 06:00 - Related Data Allergies Allergy/AdvReac Type Severity Reaction Status Date / Time No Known Allergies Allergy Verified 12/07/20 06:10 Home Meds: Home Meds Fish Oil/DHA/EPA [Fish Oil 1,200 MG] 1 tab PO TID 06/08/17 [History] Multivitamin [Multi-Vitamin Daily] 1 tab PO DAILY 06/08/17 [History] Course - Vital Signs Text/Narrative:: Assumed care from Karolina Sung RECREATIONAL AIDE at shift change. The pt is covid positive. I will have her quarantine for 14 days form the onset of symptoms Departure - Departure Time of Disposition: 06:59 Disposition: Home, Self-Care 01 Condition: Good Clinical Impression: COVID - Discharge Information *PRESCRIPTION DRUG MONITORING PROGRAM REVIEWED*: Not Applicable *COPY OF PRESCRIPTION DRUG MONITORING REPORT IN PATIENT LUNA: Not Applicable Instructions: 10 Things You Can Do to Manage Your COVID-19 Symptoms at Home - [facility] (09/15/2020) Forms: ED Department Discharge Additional Instructions: You have Covid, you need to quarantine for 14 days from the onset of your symptoms. Anyone that has been around you should quarantine as well. Use Tylenol and motrin to control any fevers and pain. If any new symptoms or concerns develop contact your [facility] or return to the ER. <Karolina Varelaberterrell Casillas - Last Filed: 12/08/20 05:12> ED HPI GENERAL MEDICAL PROBLEM - General Source of Information: Reports: Patient, RN, RN Notes Reviewed History Limitations: Reports: No Limitations - History of Present Illness INITIAL COMMENTS - FREE TEXT/NARRATIVE: Bianca is a 40 y/o female who presents to the ED via personal vehicle with complaints of headache, dry cough, nasal congestion, muscle aches, and decreased taste/smell. She reports her children were diagnosed with RSV a week and a half ago. Her symptoms began four days ago and have progressively worsened. She denies fever, shaking chills, chest pain, palpitations, shortness of breath, nausea, vomiting, or diarrhea. She has taken one dose of ibuprofen and multiple cough drops for her symptoms. She is not vaccinated for COVID. 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: Musculoskeletal History: Reports: None Neurological History: Reports: None Psychiatric History: Reports: None Endocrine/Metabolic History: Reports: None Hematologic History: Reports: Anemia Immunologic History: Reports: None Oncologic (Cancer) History: Reports: None Dermatologic History: Reports: None - Infectious Disease History Infectious Disease History: Reports: None - Past Surgical History Head Surgeries/Procedures: Reports: None Female Surgical History: Reports: Section Social & Family History - Family History Family Medical History: No Pertinent Family History Hematologic: Reports: Anemia - Tobacco Use Tobacco Use Status *Q: Never Tobacco User - Caffeine Use Caffeine Use: Reports: None - Recreational Drug Use Recreational Drug Use: No - Living Situation & Occupation Living situation: Reports: with Family Occupation: Employed ED ROS GENERAL - Review of Systems Review Of Systems: Comprehensive ROS is negative, except as noted in HPI. ED EXAM, GENERAL - Physical Exam Exam: See Below Exam Limited By: No Limitations General Appearance: Alert, No Apparent Distress Eye Exam: Bilateral Eye: EOMI, Normal Inspection, PERRL (3mm) Ears: Normal External Exam, Normal Canal, Hearing Grossly Normal, Normal TMs Ear Exam: Bilateral Ear: Auricle Normal, Canal Normal, TM normal Nose: Normal Inspection, Normal Mucosa, No Blood Throat/Mouth: Normal Inspection, Normal Oropharynx, Normal Voice, No Airway Compromise Head: Atraumatic, Normocephalic Neck: Normal Inspection, Supple, Non-Tender, Full Range of Motion, Lymphadenopathy (L). No: Lymphadenopathy (R) Respiratory/Chest: No Respiratory Distress, Lungs Clear, Normal Breath Sounds, No Accessory Muscle Use, Chest Non-Tender Cardiovascular: Normal Peripheral Pulses, Regular Rate, Rhythm, No Edema, No Gallop, No JVD, No Murmur, No Rub, Tachycardia Peripheral Pulses: 2+: Radial (L), Radial (R) GI/Abdominal: Normal Bowel Sounds, Soft (Female) Exam: Deferred Rectal (Female) Exam: Deferred Back Exam: Normal Inspection, Full Range of Motion Extremities: Normal Inspection, Normal Range of Motion Neurological: Alert, Oriented, CN II-XII Intact, Normal Cognition, Normal Gait, No Motor/Sensory Deficits Psychiatric: Normal Affect, Normal Mood Skin Exam: Warm, Dry, Intact, Normal Color, No Rash. No: Cyanosis, Jaundice, Mottled, Pallor Course - Vital Signs Last Recorded V/S: Last Vital Signs Temp 100.5 F 12/07/20 07:14 Pulse 97 12/07/20 07:14 Resp 20 12/07/20 07:14 BP 130/91 H 12/07/20 07:14 Pulse Ox 96 12/07/20 07:14 - Orders/Labs/Meds Labs: Laboratory Tests 12/07/20 Range/Units 06:13 SARS-CoV-2 RNA (SUKHI) Positive H (NEGATIVE) Meds: Medications Discontinued Medications Generic Name Dose Route Start Last Admin Trade Name Freq PRN Reason Stop Dose Admin Benzonatate 100 mg 12/07/20 06:46 12/07/20 07:15 Benzonatate 100 Mg Cap PO 12/07/20 06:47 100 mg ONETIME ONE Administration - Re-Assessments/Exams Free Text/Narrative Re-Assessment/Exam: 12/07/20 VANESSA Munson administered for cough Care of patient transferred to Obdulio Asif PA-C at 0700. Sepsis Event Note (ED) - Evaluation Sepsis Screening Result: No Definite Risk
[2020-12-07] MEDS ORDERED: Benzonatate 100 MG Cap PO ONE (06:46)
[2020-12-07 07:15] VITALS: BP 130/91; PULSE 97
== END 2020-12-07 07:17 | disposition home or self-care (01) ==
LOC: DL.ED 05:47
DX: U07.1 COVID-19 (principal)
CPT/HCPCS: 87635; 99284; A9270; U0002

== ENCOUNTER 2024-05-13 07:13 | Emergency (ER) | payer OTHER ==
[2024-05-13] MEDS: Ondansetron 4 MG Tab.DIS PO ONE (07:59)
[2024-05-13 09:29] VITALS: BP 130/79; PULSE 82
== END 2024-05-13 10:10 | disposition home or self-care (01) ==
LOC: DL.ED 07:13
DX: S00.33XA Contusion of nose, initial encounter (principal); S70.11XA Contusion of right thigh, initial encounter; Z79.899 Other long term (current) drug therapy; W18.2XXA Fall in (into) shower or empty bathtub, initial encounter; Y93.89 Activity, other specified
CPT/HCPCS: 70450; 70486; 99284; A9270-GY